=== PATIENT | female | born 1965 | race Caucasian/White ===

== ENCOUNTER 2025-01-27 08:12 | Outpatient (CLI) | payer OTHER ==
[2025-01-27] MEDS ORDERED: Sincalide 5 MCG VIAL ONE (09:19)
[2025-01-27] MEDS ORDERED: Bacteriostatic Normal Saline 30 ML VIAL ONE (09:19)
== END 2025-01-27 08:13 | disposition home or self-care (01) ==
LOC: NM 08:12
PROVIDERS: ATTEND Physician Assistant
DX: R10.11 Right upper quadrant pain (principal)
CPT/HCPCS: 78227; A9537; J2805

== ENCOUNTER 2025-03-11 11:04 | Outpatient (CLI) | payer OTHER | END 2025-03-11 11:05 | disposition home or self-care (01) | LOC: SCSMRI 11:04 | PROVIDERS: ATTEND Orthopaedic Surgery | DX: M25.561 Pain in right knee (principal); S83.241A Other tear of medial meniscus, current injury, right knee, initial encounter; S83.8X1A Sprain of other specified parts of right knee, initial encounter ==